=== PATIENT | female | born 1970 | race Caucasian/White ===

== ENCOUNTER 2018-07-01 07:50 | Outpatient (CLI) | END 2018-07-01 08:10 | disposition short-term general hospital (02) | LOC: AMBL 07:50 | PROVIDERS: ATTEND Internal Medicine | DX: S69.91XA Unspecified injury of right wrist, hand and finger(s), initial encounter (principal); S89.92XA Unspecified injury of left lower leg, initial encounter; S09.90XA Unspecified injury of head, initial encounter; M54.6 Pain in thoracic spine; S61.219A Laceration without foreign body of unspecified finger without damage to nail, initial encounter; M79.89 Other specified soft tissue disorders; R11.0 Nausea; V89.2XXA Person injured in unspecified motor-vehicle accident, traffic, initial encounter ==